=== PATIENT | male | born 1970 | race Caucasian/White ===

== ENCOUNTER → 2018-07-22 | Outpatient (CLI) | payer OTHER ==
[~2018-07-22] MED LIST: AMOX1TAB64 PO; ESOM40CA PO; OMNIPAQUE 350 MG/ML, 100ML BOTTLE ONE
== END | disposition home or self-care (01) ==
LOC: RAD 12:47
PROVIDERS: ATTEND Internal Medicine Gastroenterology
DX: K57.32 Diverticulitis of large intestine without perforation or abscess without bleeding (principal)
CPT/HCPCS: 74177; Q9967

== ENCOUNTER → 2018-09-23 | Outpatient (CLI) | payer OTHER | END | disposition home or self-care (01) | LOC: RAD 16:40 | PROVIDERS: ATTEND Surgery | DX: K57.32 Diverticulitis of large intestine without perforation or abscess without bleeding (principal) | CPT/HCPCS: 74177; Q9967 ==

== ENCOUNTER 2018-10-20 10:02 | Inpatient (IN) | payer OTHER ==
[~2018-10-20] VITALS: Ht 172.7 cm; Wt 84.2 kg
[~2018-10-20 10:02] MED LIST changes: +DOCU-144 PO; +METR-142 PO; +NEOM500T PO; -OMNIPAQUE 350 MG/ML, 100ML BOTTLE ONE; +POLY17PO5 PO
[2018-10-20] MEDS ORDERED: LACTATED RINGERS 1,000 ML IV SCH (10:16)
[2018-10-20] MEDS ORDERED: GABAPENTIN 300 MG CAPSULE PO ONE (10:30)
[2018-10-20] MEDS ORDERED: ACETAMINOPHEN 500 MG TABLET PO ONE (10:30)
[2018-10-20 10:37] VITALS: BP 112/82
[2018-10-20] MEDS ORDERED: SCOPOLAMINE PATCH, 1.5MG PATCH.TD72 TD ONE ×2 (10:57→11:00)
[2018-10-20] MEDS ORDERED: MIDAZOLAM 1 MG/ML, 2ML ONE (11:05)
[2018-10-20] MEDS ORDERED: ROCURONIUM 10MG/ML,5ML ONE (11:06)
[2018-10-20] MEDS ORDERED: CEFOTETAN PMX 2GM/50ML 50 ML ONE (11:06)
[2018-10-20] MEDS ORDERED: FENTANYL PF 250 MCG/5ML ONE (11:06)
[2018-10-20] MEDS ORDERED: PROPOFOL 10 MG/ML, 20ML ONE (11:06)
[2018-10-20] MEDS ORDERED: LIDOCAINE-MPF 2% ,5ML ONE (11:06)
[2018-10-20] MEDS ORDERED: ONDANSETRON 2MG/ML, 2ML ONE ×2 (11:07)
[2018-10-20] MEDS ORDERED: DEXAMETHASONE 4 MG/ML, 1ML ONE ×2 (11:07)
[2018-10-20] MEDS ORDERED: INDOCYANINE GREEN 25 MG VIAL ONE (12:51)
[2018-10-20] MEDS ORDERED: MEPERIDINE/PF 25MG/0.5ML IVPush PRN (13:00)
[2018-10-20] MEDS ORDERED: PROMETHAZINE 25 MG/ML, 1ML IV PRN (13:00)
[2018-10-20] MEDS ORDERED: LABETALOL 5MG/ML, 20ML IV PRN (13:00)
[2018-10-20] MEDS ORDERED: FENTANYL PF 100 MCG/2ML IV PRN (13:00)
[2018-10-20] MEDS ORDERED: hydrALAzine 20 MG/ML, 1ML IV PRN (13:00)
[2018-10-20] MEDS ORDERED: LORazepam 2 MG/ML, 1ML IVPush PRN ×2 (13:00→17:00)
[2018-10-20] MEDS ORDERED: HALOPERIDOL 5 MG/ML IV PRN (13:00)
[2018-10-20] MEDS ORDERED: OXYcodone 5 MG/5 ML ORAL.SOL UDC PO PRN (13:00)
[2018-10-20] MEDS ORDERED: HYDROmorphone 2 MG/ML, 1ML IVPush PRN ×2 (13:00→17:00)
[2018-10-20] MEDS ORDERED: FENTANYL PF 100 MCG/2ML ONE (13:53)
[2018-10-20] MEDS ORDERED: OXYcodone 5 MG/5 ML ORAL.SOL UDC ONE (14:53)
[2018-10-20] MEDS: OMEPRAZOLE 20 MG CAPSULE.DR PO SCH (16:50)
[2018-10-20] MEDS: ACETAMINOPHEN 500 MG TABLET PO SCH ×2 (16:50→22:52)
[2018-10-20] MEDS ORDERED: SCOPOLAMINE PATCH, 1.5MG PATCH.TD72 TD PRN (17:00)
[2018-10-20] MEDS ORDERED: DIPHENHYDRAMINE 25 MG CAPSULE PO PRN (17:00)
[2018-10-20] MEDS ORDERED: LORazepam 1MG TABLET PO PRN (17:00)
[2018-10-20] MEDS ORDERED: DIPHENHYDRAMINE 50 MG/ML, 1ML IVPush PRN (17:00)
[2018-10-20] MEDS ORDERED: CALCIUM CARBONATE 500 MG TAB.CHEW PO PRN (17:00)
[2018-10-20] MEDS ORDERED: TRAZODONE 50MG TABLET PO PRN (17:00)
[2018-10-20] MEDS ORDERED: ONDANSETRON 2MG/ML, 2ML IV PRN (17:00)
[2018-10-20] MEDS ORDERED: HALOPERIDOL 5 MG/ML IVPush PRN (17:00)
[2018-10-20] MEDS ORDERED: ACETAMINOPHEN 100 ML IVPB PRN (17:00)
[2018-10-20] MEDS ORDERED: DEXAMETHASONE 4 MG/ML, 1ML IVPush PRN (17:00)
[2018-10-20] MEDS: D5%-0.45NACL+KCL 20MEQ 1,000 ML IV SCH (17:25)
[2018-10-20 20:00] VITALS: BP 101/67
[2018-10-20] MEDS: OXYcodone IR 5MG TABLET PO PRN (20:58)
[2018-10-21 00:11] VITALS: BP 103/65
[2018-10-21] MEDS: OXYcodone IR 5MG TABLET PO PRN ×6 (02:41→22:47)
[2018-10-21 03:50] VITALS: BP 113/77
[2018-10-21] MEDS: ACETAMINOPHEN 500 MG TABLET PO SCH ×4 (05:03→22:47)
[2018-10-21] MEDS: D5%-0.45NACL+KCL 20MEQ 1,000 ML IV SCH ×2 (05:32→21:18)
[2018-10-21 05:37] LABS: BASOPHILS % (AUTO) 0 % (0-1); EOSINOPHILS % (AUTO) 0 % (1-7); LYMPHOCYTES # (AUTO) 0.83 x10^3/uL (1-3.4); LYMPHOCYTES % (AUTO) 6 % (22-44); MD NO; MEAN CORPUSCULAR HEMOGLOBIN 32.6 pg (27.5-34.5); MEAN CORPUSCULAR HGB CONC 34.1 g/dL (33.2-36.2); MEAN CORPUSCULAR VOLUME 95.8 fL (81-97); MONOCYTES # (AUTO) 1.13 x10^3/uL (0.2-0.8); MONOCYTES % (AUTO) 8 % (2-9); NEUTROPHILS # (AUTO) 11.51 x10^3/uL (1.8-6.8); NEUTROPHILS % (AUTO) 85 % (42-75); PLATELET COUNT 248 x10^3/uL (130-400); RED BLOOD COUNT 4.65 x10^6/uL (4.38-5.82); RED CELL DISTRIBUTION WIDTH 13.8 % (9.4-14.8)
[2018-10-21 05:43] LABS: CHLORIDE 106 mmol/L (98-107)
[2018-10-21 05:47] LABS: ANION GAP 9 mmol/L (5-15); CALCIUM 8.4 mg/dL (8.5-10.1); CREATININE 1.24 mg/dL (0.7-1.3)
[2018-10-21] MEDS: OMEPRAZOLE 20 MG CAPSULE.DR PO SCH ×2 (07:45→16:34)
[2018-10-21 08:37] VITALS: BP 129/79
[2018-10-21] MEDS: ENOXAPARIN 40 MG/0.4 ML SQ SCH (08:57)
[2018-10-21 13:28] VITALS: BP 132/81
[2018-10-21 20:34] VITALS: BP 137/82
[2018-10-22 02:55] VITALS: BP 125/81
[2018-10-22] MEDS: ACETAMINOPHEN 500 MG TABLET PO SCH ×3 (04:32→16:59)
[2018-10-22 05:17] LABS: BASOPHILS # (AUTO) 0.04 x10^3/uL (0-0.1); BASOPHILS % (AUTO) 0 % (0-1); EOSINOPHILS # (AUTO) 0.15 x10^3/uL (0-0.4); EOSINOPHILS % (AUTO) 2 % (1-7); LYMPHOCYTES # (AUTO) 1.95 x10^3/uL (1-3.4); LYMPHOCYTES % (AUTO) 21 % (22-44); MD NO; MEAN CORPUSCULAR HEMOGLOBIN 32.5 pg (27.5-34.5); MEAN CORPUSCULAR HGB CONC 34.3 g/dL (33.2-36.2); MEAN CORPUSCULAR VOLUME 94.9 fL (81-97); MEAN PLATELET VOLUME 7.9 fL (7.4-10.4); MONOCYTES # (AUTO) 0.79 x10^3/uL (0.2-0.8); MONOCYTES % (AUTO) 9 % (2-9); NEUTROPHILS # (AUTO) 6.26 x10^3/uL (1.8-6.8); NEUTROPHILS % (AUTO) 68 % (42-75); PLATELET COUNT 209 x10^3/uL (130-400); RED BLOOD COUNT 4.67 x10^6/uL (4.38-5.82); RED CELL DISTRIBUTION WIDTH 14.4 % (9.4-14.8)
[2018-10-22 05:29] LABS: ANION GAP 8 mmol/L (5-15); CALCIUM 8.7 mg/dL (8.5-10.1); CHLORIDE 108 mmol/L (98-107); CREATININE 1.06 mg/dL (0.7-1.3)
[2018-10-22] MEDS: METOCLOPRAMIDE 5 MG/ML, 2ML IVPush SCH ×3 (06:29→18:20)
[2018-10-22 07:18] VITALS: BP 135/84
[2018-10-22] MEDS: OMEPRAZOLE 20 MG CAPSULE.DR PO SCH ×2 (08:48→16:58)
[2018-10-22] MEDS: OXYcodone IR 5MG TABLET PO PRN (08:48)
[2018-10-22] MEDS: ENOXAPARIN 40 MG/0.4 ML SQ SCH (10:30)
[2018-10-22] MEDS: D5%-0.45NACL+KCL 20MEQ 1,000 ML IV SCH (11:34)
[2018-10-22 14:35] VITALS: BP 143/81
[2018-10-22] MEDS ORDERED: OXYC-302 PO (19:03)
== END 2018-10-22 19:44 | disposition home or self-care (01) | DRG 331 ==
LOC: ORIP 10:02 → 4NOR 15:51
PROVIDERS: ADMIT Surgery; ATTEND Surgery
PROC: 0DBN4ZZ Excision of Sigmoid Colon, Percutaneous Endoscopic Approach (ICD-10-PCS; 2018-10-20)
PROC: 8E0W3CZ Robotic Assisted Procedure of Trunk Region, Percutaneous Approach (ICD-10-PCS; 2018-10-20)
PROC: 0DBP4ZZ Excision of Rectum, Percutaneous Endoscopic Approach (ICD-10-PCS; principal; 2018-10-20 12:00)
DX: K57.30 Diverticulosis of large intestine without perforation or abscess without bleeding (principal); K57.32 Diverticulitis of large intestine without perforation or abscess without bleeding; N18.9 Chronic kidney disease, unspecified; K21.9 Gastro-esophageal reflux disease without esophagitis; Z88.6 Allergy status to analgesic agent; Z80.42 Family history of malignant neoplasm of prostate; Z82.49 Family history of ischemic heart disease and other diseases of the circulatory system; Z83.3 Family history of diabetes mellitus
CPT/HCPCS: 36415; 71046; 80048; 85025; 86140; 86850; 86900; 88307; 93005; G0378; J1100; J1650; J2250; J2405; J2704; J3010; J3490; C1765; J2765; J3480; J7120

== ENCOUNTER → 2021-02-04 | Outpatient (CLI) | payer OTHER ==
[~2021-02-04] MED LIST changes: -METR-142 PO; +METR-90 PO; +OXYC1TAB14 PO
== END | disposition home or self-care (01) ==
LOC: CFH 12:29
PROVIDERS: ATTEND Internal Medicine Cardiovascular Disease
DX: I11.9 Hypertensive heart disease without heart failure (principal); R94.31 Abnormal electrocardiogram [ECG] [EKG]; Z86.16 Personal history of COVID-19
CPT/HCPCS: 78452; 93017; 93306; A9502